=== PATIENT | male | born 1980 | race Two or more races ===

== ENCOUNTER 2020-11-10 14:17 | Outpatient (REF) | payer OTHER, SELFPAY | END 2020-11-10 14:18 | disposition home or self-care (01) | LOC: HO.LAB 14:17 | PROVIDERS: Visit Provider Internal Medicine | DX: Z20.822 Contact with and (suspected) exposure to COVID-19 (principal) | CPT/HCPCS: 36415; C9803; U0003 ==

== ENCOUNTER 2020-12-17 17:08 | Emergency (ER) | payer OTHER, SELFPAY ==
[2020-12-17 17:15] VITALS: PULSE 107; RESP 18; TEMP 36.3; O2SAT 100; BMI 31.5
--- NOTE | 2020-12-17 17:24 | ED_ITS ---
HPI - URI/Sore Throat General Chief Complaint: Upper Respiratory Symptoms Stated Complaint: flu like Time Seen by Provider: 12/17/20 18:50 Source: patient Mode of arrival: ambulatory Limitations: no limitations History of Present Illness HPI Narrative: 40-year-old male with no significant past medical history presents with 1 day of fevers, sore throat, body aches and malaise. Has been taking Tylenol and Motrin without any relief. 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) Associated symptoms: fever, chills, myalgias, headache, nasal congestion and sore throat Treatments prior to arrival: acetaminophen and ibuprofen Related Data Allergies Allergy/AdvReac Type Severity Reaction Status Date / Time No Known Allergies Allergy Unverified 07/13/20 17:14 Review of Systems Review of Systems: Constitutional: positive Fever, positive Chills, positive fatigue, positive Malaise ENT/Mouth: positive sore throat, positive runny nose Eyes: No Discharge Cardiovascular: No Chest Pain, No SOB Respiratory: No Cough, No Sputum, No Wheezing, No Smoke Exposure, No Dyspnea Gastrointestinal: No Nausea, No Vomiting, No Diarrhea Genitourinary: no irregular bleeding, No Dysuria, No Urinary Frequency, No Hematuria, No Urinary Incontinence, No Urgency, No Flank Pain, Musculoskeletal: positive Myalgia Skin: No rash Neuro: No Headache Yes all other systems are reviewed and are negative [facility] Past Medical History Attestation statement: The following information was validated with the patient. Source: old records reviewed Social History Social History Advance Directives: No Advance Directives Information Provided: No Physical Exam Vital Signs: Vital Signs: Last Vital Signs Temp 97.4 F 12/17/20 17:15 Pulse 107 H 12/17/20 17:15 Resp 18 12/17/20 17:15 Pulse Ox 100 12/17/20 17:15 Body Mass Index 31.5 Appearance: Alert. Oriented X3. No acute distress. Eyes: Pupils equal, round and reactive to light. EOMI, sclera nonicteric ENT: Pharynx normal. No erythema or tonsillar exudates noted, moist mucous membranes, bilateral tympanic membranes intact Neck: Normal inspection. Neck supple. No cervical lymphadenopathy noted CVS: Normal heart rate and rhythm. Pulses normal. Respiratory: No respiratory distress. Lung sounds clear to auscultation all lobes Abdomen: Soft and nontender. Skin: Skin warm and dry. Normal skin color. Normal skin turgor. Extremities: No lower extremity edema. Neuro: No motor deficit. No sensory deficit. Course Course Course Narrative: 40-year-old male presents with upper respiratory symptoms consistent with COVID-19. Plan of care is to test and discharge to home. MDM - URI/Sore Throat Differential Diagnosis Differential diagnosis: Likely upper respiratory infection, viral infection and influenza Medical Records Attestation: I reviewed the patient's medical records. Lab Data Attestation: I reviewed the patient's lab results. Labs: Lab Results 12/17/20 Range/Units 17:36 Coronavirus (PCR) NEGATIVE (Negative) Influenza Type A (PCR) NEGATIVE (Negative) Influenza Type B (PCR) NEGATIVE (Negative) RSV RNA Qual (PCR) NEGATIVE (Negative) Discharge Plan Discharge Clinical Impression: Viral infection, COVID-19 Upper respiratory infection Qualifiers: URI type: unspecified URI Qualified Code(s): J06.9 - Acute upper respiratory infection, unspecified Patient Disposition: Home, Self-Care Instructions: Upper Respiratory Infection (ED), Viral Syndrome (ED) Additional Instructions: You were evaluated for upper respiratory symptoms. Your COVID-19 test was negative. Please use Tylenol Motrin as needed for pain management. You may consider using iyfo-uhy-woefldj cough suppressants. Please follow the directions on package. Drink plenty of fluids. Thank you for choosing this emergency department for evaluation. Please f ollow-up with primary care physician as needed. Return to the emergency department for any new, concerning, or worsening symptoms. Interventions: ED Discharge Assessment Last Done: 12/17/20 18:55 Discharge Date/Time: 12/17/20 18:56
[2020-12-17 18:21] LABS: Influenza A PCR NEGATIVE (Negative); Influenza B PCR NEGATIVE (Negative); Resp Syncy Virus RNA Qual PCR NEGATIVE (Negative); SARS COV2 PCR INHOUSE NEGATIVE (Negative)
== END 2020-12-17 18:56 | disposition home or self-care (01) ==
PROVIDERS: Nurse Practitioner Family; Emergency Provider Internal Medicine; PCP Internal Medicine
DX: U07.1 COVID-19 (principal); R50.9 Fever, unspecified; J02.9 Acute pharyngitis, unspecified; M79.10 Myalgia, unspecified site
CPT/HCPCS: 0241U; 36415; 99283

== ENCOUNTER 2023-01-28 15:30 | Emergency (ER) | payer OTHER, SELFPAY ==
--- NOTE | ~2023-01-28 | XR_ITS ---
EXAMINATION: 1. Left foot. 2. Left tibia fibula. 3. Left knee. CLINICAL INFORMATION: Left foot pain. COMPARISON: None. TECHNIQUE: 1. Left foot. 3 views 2. Left tibia-fibula. 2 views 3. Left knee. 2 views FINDINGS: 1. Left foot. No fracture. No dislocation. Bone and joint are normal. 2. Left tibia-fibula. No fracture. Tibia and fibula are normal. No soft tissue abnormality. 3. Left knee. No fracture. No dislocation. No joint effusion. XR/XR tibia fibula LT 2V IMPRESSION: 1. Left foot. Normal. 2. Left tibia-fibula. Normal. 3. Left knee. Normal.
--- NOTE | ~2023-01-28 | XR_ITS ---
EXAMINATION: 1. Left foot. 2. Left tibia fibula. 3. Left knee. CLINICAL INFORMATION: Left foot pain. COMPARISON: None. TECHNIQUE: 1. Left foot. 3 views 2. Left tibia-fibula. 2 views 3. Left knee. 2 views FINDINGS: 1. Left foot. No fracture. No dislocation. Bone and joint are normal. 2. Left tibia-fibula. No fracture. Tibia and fibula are normal. No soft tissue abnormality. 3. Left knee. No fracture. No dislocation. No joint effusion. XR/XR foot LT 2V IMPRESSION: 1. Left foot. Normal. 2. Left tibia-fibula. Normal. 3. Left knee. Normal.
--- NOTE | ~2023-01-28 | XR_ITS ---
EXAMINATION: 1. Left foot. 2. Left tibia fibula. 3. Left knee. CLINICAL INFORMATION: Left foot pain. COMPARISON: None. TECHNIQUE: 1. Left foot. 3 views 2. Left tibia-fibula. 2 views 3. Left knee. 2 views FINDINGS: 1. Left foot. No fracture. No dislocation. Bone and joint are normal. 2. Left tibia-fibula. No fracture. Tibia and fibula are normal. No soft tissue abnormality. 3. Left knee. No fracture. No dislocation. No joint effusion. XR/XR knee LT 2V IMPRESSION: 1. Left foot. Normal. 2. Left tibia-fibula. Normal. 3. Left knee. Normal.
[2023-01-28 16:56] VITALS: BP 152/111; PULSE 122; RESP 18; TEMP 37.1; O2SAT 99; BMI 31.5
--- NOTE | 2023-01-28 16:58 | ED.LOWEXIN ---
HPI - Extremity Injury (Lower) General Chief Complaint: Extremity Injury, Lower <JANNIE Mishra - Last Filed: 01/28/23 17:09> Stated Complaint: Fall down stairs/L leg inj <JANNIE Mishra - Last Filed: 01/28/23 17:09> Time Seen by Provider: 01/28/23 18:39 <JANNIE Mishra - Last Filed: 01/28/23 17:09> Source: patient and RN notes reviewed <Juan R Royal - Last Filed: 01/28/23 19:21> Mode of arrival: ambulatory <Juan R Royal - Last Filed: 01/28/23 19:21> Limitations: no limitations <Juan R Royal - Last Filed: 01/28/23 19:21> History of Present Illness HPI Narrative: 42-year-old male presents for evaluation of left ankle pain. Patient reports that he slipped down 7 stairs at home a few hours prior to arrival. The patient reports that he grabbed the hand rail, so he slid down but did not fall or hit his head He reports that he only ate his left ankle He complains of 7/10 pain that is worse with walking Denies any fevers, chills <Juan R Royal - Last Filed: 01/28/23 19:21> Related Data Allergies/Adverse Reactions: Allergies Allergy/AdvReac Type Severity Reaction Status Date / Time No Known Allergies Allergy Unverified 07/13/20 17:14 <JANNIE Mishra - Last Filed: 01/28/23 17:09> Review of Systems Constitutional: Constitutional: Reports as per HPI, Denies chills and Denies fever(s) <Juan R Royal - Last Filed: 01/28/23 19:21> Cardiovascular: Cardiovascular: Denies chest pain <Juan R Royal - Last Filed: 01/28/23 19:21> Musculoskeletal: Musculoskeletal: Reports arthralgias, Reports joint swelling and Reports limited range of motion <Juan R Royal - Last Filed: 01/28/23 19:21> Neurologic: Denies focal weakness <Juan R Royal - Last Filed: 01/28/23 19:21> [facility] Social History Social History: Social History Advance Directives: No Advance Directives Information Provided: No <JANNIE Mishra - Last Filed: 01/28/23 17:09> Physical Exam Vital Signs: Vital Signs: Last Vital Signs Temp 98.8 F 01/28/23 16:56 Pulse 122 H 01/28/23 16:56 Resp 18 01/28/23 16:56 BP 152/111 H 01/28/23 16:56 Pulse Ox 99 01/28/23 16:56 O2 Del Method Room Air 01/28/23 16:56 BMI result Body Mass Index 31.5 <JANNIE Mishra - Last Filed: 01/28/23 17:09> Vital Signs: Last Vital Signs Temp 98.8 F 01/28/23 16:56 Pulse 122 H 01/28/23 16:56 Resp 18 01/28/23 16:56 BP 152/111 H 01/28/23 16:56 Pulse Ox 99 01/28/23 16:56 O2 Del Method Room Air 01/28/23 16:56 BMI result Body Mass Index 31.5 <Juan R Royal - Last Filed: 01/28/23 19:21> Const: General: healthy appearing, comfortable, no acute distress, alert and awake <Juan R Royal - Last Filed: 01/28/23 19:21> Nutritional Appearance: well nourished <Juan R Royal - Last Filed: 01/28/23 19:21> Orientation/consciousness: patient oriented x3 <Juan R Royal - Last Filed: 01/28/23 19:21> Neck: Neck: Yes full ROM <Juan R Royal - Last Filed: 01/28/23 19:21> Resp: Effort & Inspection: normal respiratory effort <Juan R Royal - Last Filed: 01/28/23 19:21> Skin: General skin exam: no rashes or lesions noted and elasticity normal <Juan R Royal - Last Filed: 01/28/23 19:21> Neuro: General: patient oriented x3 <Juan R Royal - Last Filed: 01/28/23 19:21> Cranial nerves: Yes Bilaterally intact EOM present <Juan R Royal - Last Filed: 01/28/23 19:21> Cognition (Neuro): normal cognition <Juan R Royal - Last Filed: 01/28/23 19:21> Extrem: Other: Patient has left lateral ankle edema. He is nontender with palpation of the medial or lateral malleolus. The patient is tender to palpation over the left patella fibular ligament. No hip or knee tenderness. Full range of motion to the left hip and knee. <Juan R Royal - Last Filed: 01/28/23 19:21> Course Course Course Narrative: This is an RME: Additional HPI, ROS, PE not included below will be deferred to primary provider. 42-year-old male presents with left foot, ankle, lower extremity pain status post slipping down the stairs he was going down the stairs and slipped, rolled his ankle outwards, has been having pain and swelling to the lower extremity ever since then. He tells me any fell he held onto the handrail, did not his head or lose consciousness, not on thinners. Ambulated w/ limp into triage. Denies numbness and tingling PE w/ swelling to lateral L no ill w/ painful ROM of ankle. NV intact Plan- imaging <JANNIE Mishra - Last Filed: 01/28/23 17:09> Medical Decision Making Medical Decision Making MDM Narrative: Patient clinically has a left ankle sprain of the talofibular ligament. Will treat with crutches and Michael wrap. <Juan R Royal - Last Filed: 01/28/23 19:21> Differential Diagnosis Ankle fracture Ankle sprain Contusion Foot fracture <Juan R Royal - Last Filed: 01/28/23 19:21> Radiology Impression Discussion of test interpretation with radiology: I have reviewed the radiologist's reading. (Patient had x-rays of the left knee, left foot and left tibia and fibula without acute findings) <Juan R Royal - Last Filed: 01/28/23 19:21> Discharge Plan Discharge Clinical Impression: Left ankle sprain <JANNIE Mishra - Last Filed: 01/28/23 17:09> Patient Disposition: Home, Self-Care <JANNIE Mishra - Last Filed: 01/28/23 17:09> Instructions: Ankle Sprain (ED) <JANNIE Mishra - Last Filed: 01/28/23 17:09> Additional Instructions: Your x-rays did not show any fractures. Use ibuprofen as needed for pain and swelling. Ice the area every 4 hours for 10 minutes for the next 2 days Elevate the leg above your heart while resting <JANNIE Mishra - Last Filed: 01/28/23 17:09> Stand Alone Forms: Work/School Release <JANNIE Mishra - Last Filed: 01/28/23 17:09> Interventions: ED Discharge Assessment Last Done: 01/28/23 19:21 <JANNIE Mishra - Last Filed: 01/28/23 17:09>
== END 2023-01-28 19:21 | disposition home or self-care (01) ==
PROVIDERS: Emergency Provider Emergency Medicine; PCP Internal Medicine
DX: S93.492A Sprain of other ligament of left ankle, initial encounter (principal); W10.8XXA Fall (on) (from) other stairs and steps, initial encounter; Y93.89 Activity, other specified; Y92.018 Other place in single-family (private) house as the place of occurrence of the external cause; Y99.9 Unspecified external cause status
CPT/HCPCS: 73560; 73590; 73620; 99282; 99283

== ENCOUNTER 2023-09-04 11:36 | Outpatient (AMB) | payer OTHER, SELFPAY ==
[2023-09-04 11:40] VITALS: BP 140/92; PULSE 110; O2SAT 98; BMI 32.7
--- NOTE | 2023-09-04 11:40 | MHC.PC.OV ---
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 [employer] Lead Required: No Accompanied by: Self / Same As Patient Allergies No Known Allergies Allergy (Verified 09/04/23 11:56) Medication List - Last Reconciled 09/04/23 by NETTIE Kelly No Known Home Meds Tobacco use date assessed: 09/04/23 Dental Screening Dental Screen Date: 09/04/23 Did you have a dental visit in the last 12 months?: No Did you have a dental problem in the last 6 months where you did not have access to dental care?: No Was dental information given to patient?: No HPI HPI Comments History of Present Illness Details 43-year-old male new patient presents today to establish care. PMH significatnfor lumbar back pain. Patient reports elevated blood pressures at home. States his is lb and she checks his blood pressure frequently and it is always above 140/90. Patient states also has left-sided chest pressure with his blood pressures are elevated that typically last 20-30 minutes when he rests and resolves. Patient states was recently at [facility] Emergency room for evaluation of this and workup was unremarkable. Will request records. Denies CP at this time,palpitations, sob and syncope. 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 Eye exam: November 2022 Fasting labs ordered. [facility] Medical History (Updated 09/04/23 @ 12:03 by NETTIE Kelly) Lumbar back pain Family History (Updated 09/04/23 @ 11:59 by NETTIE Kelly) Mother Hypertension Social History (Updated 09/04/23 @ 11:59 by NETTIE Kelly) Housing: House Alcohol intake: never Patient Tobacco Use Status: Never used Tobacco e-Cigarette/Vaping Use: Never Used Use of substances other than those prescribed or required for medical reasons: No service: No Current occupational status: employed Cognitive needs: No Hearing needs: No Vision needs: No Questionnaire PHQ-9 Over the last 2 weeks, how often have you been bothered by any of the following problems? 1. Little interest or pleasure in doing things: not at all 2. Feeling down, depressed, or hopeless: not at all 3. Trouble falling or staying asleep, or sleeping too much: not at all 4. Feeling tired or having little energy: not at all 5. Poor appetite or overeating: not at all 6. Feeling bad about yourself - or that you are a failure or have let yourself or your family down: not at all 7. Trouble concentrating on things, such as reading the newspaper or watching television: not at all 8. Moving or speaking so slowly that other people could have noticed. Or the opposite - being so fidgety or restless that you have been moving around a lot more than usual: not at all 9. Thoughts that you would be better off or of hurting yourself in some way: not at all Total score: 0 Depression Screening Interpretation: Negative Depression Screening Done: Yes 91140 - PHQ-9 Billing: Yes Source: Developed by Drs. Juan Mott, Tea Altman, Liu Gonzalez and colleagues, with an educational lito from [employer]. Thrive Questionnaire Date Thrive assessed: 09/04/23 I am a: Patient What is your living situation today?: I have a steady place to live Within the past 12 months, did the food you bought not last and you didn't have the money to get more?: Never true Within the past 12 months, did you worry whether your food would run out before you got money to buy more?: Never true Do you have trouble paying for medicines?: No Do you have trouble getting transportation to medical appointments?: No Do you have trouble paying your heating and electricity bill?: No Do you have trouble taking care of your child, family member or friend?: No Do you have trouble with day-to-day activities such as bathing, preparing meals, shopping, managing finances, etc.?: No Are you currently unemployed and looking for a job?: No Are you interested in more education?: No Please select the resources that you would like help with: None Currently or been in a relationship where the following occur: no concerns reported AUDIT C Alcohol Use Questionnaire (AUDIT-C) 1. How often do you have a drink containing alcohol?: Never 3. How often do you have six or more drinks on one occasion?: Never Total Score: 0 ANAYA-7 AMB Questionnaire ANAYA-7 Date ANAYA - 7 assessed: 09/04/23 Feeling nervous, anxious, or on edge: 0 = Not at all Not being able to stop or control worryin = Not at all Worrying too much about different things: 0 = Not at all Trouble relaxin = Not at all Being so restless that it is hard to sit still: 0 = Not at all Becoming easily annoyed or irritable: 0 = Not at all Feeling afraid as if something awful might happen: 0 = Not at all Total ANAYA-7 score (0-4 normal; 5-9 mild; 10-14 moderate; 15-21 severe): 0 Source: Developed by Drs. Juan Mott, Tea Altman, Liu Gonzalez and colleagues, with an educational lito from [employer]. ANAYA-7 Assessment Billing ANAYA-7 Assessment Tool: ANAYA-7 Assessment 98147 Review of Systems Const Denies chills, Denies fatigue, Denies fever(s) and Denies poor appetite Eyes Denies no additional complaints ENT Reports Normal hearing present Card Denies chest pain, Denies syncope, Denies rapid heart rate and Denies dyspnea Resp Denies cough and Denies dyspnea GI Denies change in stool character, Denies constipation, Denies diarrhea, Denies nausea and Denies vomiting Denies dysuria, Denies urinary frequency and Denies urinary urgency Neuro Reports Normal hearing present, Denies confusion and Denies syncope Psych Denies confusion Endo Denies fatigue Physical exam (Primary Care) Vital Signs: Last Vital Signs Pulse 110 H 09/04/23 11:40 BP 140/92 H 09/04/23 11:40 Pulse Ox 98 09/04/23 11:40 Oxygen Delivery Method Room Air 09/04/23 11:40 BMI result Body Mass Index 32.7 Tobacco/Smoking Status: Tobacco use Status Tobacco use date assessed 09/04/23 09/04/23 11:43 Patient Tobacco Use Status Never used Tobacco 09/04/23 11:59 e-Cigarette/Vaping Use Never Used 09/04/23 11:59 PHQ-9: PHQ-9 Score PHQ-9: Total score 0 09/04/23 12:12 Depression Screening Interpretation: Negative Thrive Assessment: Date of Thrive Assessment Date Thrive assessed 09/04/23 09/04/23 11:43 Currently or been in a relationship where the following occur: no concerns reported Const General: No confusion Orientation/consciousness: No confusion HENMT Head: Yes normocephalic and Yes atraumatic Ears: external ears normal and TM's normal bilaterally General nose exam: Normal external nose present and Normal nasal mucous membranes and turbinates present Face and sinus: Yes normal facial exam and Yes sinuses nontender Mouth: moist mucous membranes Throat: Yes tonsils normal Eyes Conjunctivae: conjunctivae normal Sclerae: sclerae normal Pupils: Equal, round and reactive pupils present and Pupils normal by confrontation EOM: EOMs intact bilaterally Direct Ophthalmoscopy: normal light reflex Neck Neck: Yes no lymphadenopathy and Yes supple Thyroid: Thyroid normal Chest Chest palpation & inspection: normal inspection of the chest Resp Effort & Inspection: normal respiratory effort Auscultation: clear to auscultation bilaterally, no crackles, no rhonchi and no wheezes Cardio Rate: regular rate Rhythm: regular rhythm Peripheral pulses: radial pulses present and dorsalis pedis present GI Inspection: Yes normal to inspection Palpation (GI): Soft to palpation, nontender and No hepatosplenomegaly present Auscultation: normoactive bowel sounds Skin General skin exam: no rashes or lesions noted Neuro General: No confusion Cranial nerves: Yes Equal, round and reactive pupils present and Yes Normal hearing present Cognition (Neuro): normal cognition Gait exam (Neuro): Normal gait present Motor exam (neuro): 5/5 motor strength present throughout Deep tendon reflexes (DTR's): Right brachioradialis reflex intensity grade: 2+, Left brachioradialis reflex intensity grade: 2+, Right patellar reflex intensity grade: 2+ and Left patellar reflex intensity grade: 2+ Extrem General: No edema Office Procedures Flu Questionnaire Does the patient have a severe egg allergy?: No Does the patient have severe life threatening allergies?: No Does the patient have a fever or illness today?: No Has the patient ever had Guillain-[place] Syndrome?: No Has the patient ever had any past reaction to a flu shot?: No Immunizations flu vacc [id number] 6mos up(PF) 60 mcg(15 mcgx4)/0.5 mL IM syringe Performing Provider: Dianne O'Chintan, [employer] WORKER [place] [facility] [place] [facility] Administered by: GWENDOLYN Avila on 09/04/23 12:12 Dose Route Admin Location Dispensed Lot Number Expiration Date NDC Entry Level Financial Analyst 0.5 mL IM Left Deltoid 0.5 mL [id number] 04/25/24 [id number] [place] VIS Given Date VIS Provided VIS Publication Date 09/04/23 Single Vaccine 21 Eligibility Eligibility Date Funding Source Not [facility] Eligible 09/04/23 Private Assessment and Plan Assessment & Plan (1) Hypertension: Code(s): I10 - Essential (primary) hypertension Plan: Patient is experiencing elevated blood pressure as as elevated rate will start patient on metoprolol 25 mg daily. Patient advised to follow low-salt diet exercise. Patient advised to continue to monitor blood pressure home after sitting down for 3-5 minutes and keep a log. Please report any elevated blood pressures to PCP. blood pressure goal < 140/90. (2) Chest pain: Code(s): R07.9 - Chest pain, unspecified Plan: EKG ordered. [place] [facility] [place] Signs and symptoms reviewed with patient when to seek emergency medical attention. (3) Physical exam, annual: Code(s): Z00.00 - Encounter for general adult medical examination without abnormal findings Plan: Follow up in 1 year Plan Follow up in 3 months Orders: Orders Comprehensive [place]. Panel Fast Today I10 - Essential (primary) hypertension Complete Blood Count Auto Diff Today Z13.0 - Encounter for screening for diseases of the blood and blood-forming organs and certain disorders involving the immune mechanism TSH reflex Free T4 Today Z13.29 - Encounter for screening for other suspected endocrine disorder Influenza [id number] Immunization Today Z23 - Encounter for immunization Lipid Panel Today Z13.220 - Encounter for screening for lipoid disorders ECG 12 lead EKG Today R07.9 - Chest pain, unspecified Medications: New metoprolol tartrate 25 mg PO DAILY 30 tabs 0RF I10 - Essential (primary) hypertension Coding Level of Care Code New Pt Prev Care 40-64y([id number]) Diagnoses Hypertension I10 Chest pain R07.9 Physical exam, annual Z00.00 Additional Codes ANAYA-7 Assessment Billing - ANAYA-7 Assessment Tool: ANAYA-7 Assessment [id number] ([id number])
== END 2023-09-04 12:18 | disposition home or self-care (01) ==
PROVIDERS: PCP Internal Medicine; Visit Provider Nurse Practitioner Family
DX: Z00.00 Encounter for general adult medical examination without abnormal findings (principal); I10 Essential (primary) hypertension; R07.9 Chest pain, unspecified; Z23 Encounter for immunization
CPT/HCPCS: 90471; 90686; 99386

== ENCOUNTER 2023-09-19 09:04 | Outpatient (REF) | payer OTHER, SELFPAY ==
[2023-09-19 09:16] LABS: MANUAL DIFF FLAG NO
[2023-09-19 09:26] LABS: Basophils Percent Auto 0.3 % (0-2); Eosinophils Absolute Auto 0.2 X10*3/uL (0.0-0.4); Eosinophils Percent Auto 1.7 % (0-4); Hematocrit 45.1 % (42.0-52.0); Hemoglobin 15.5 g/dl (14.0-18.0); Imm Gran Abs Auto 0.05 X10*3/uL (0.00-0.03); Imm Gran Pct Auto 0.4 % (0.0-0.4); Lymphocytes Absolute Auto 3.8 X10*3/uL (1.2-4.9); Lymphocytes Percent Auto 33.2 % (20-40); Mean Corpuscular HGB Conc 34.4 g/dl (31.0-36.0); Mean Corpuscular Volume 87.2 fL (80.0-98.0); Mean Platelet Volume 8.7 fL (9.4-12.4); Monocytes Absolute Auto 0.9 X10*3/uL (0.1-1.2); Monocytes Percent Auto 7.4 % (2-11); Neutrophils Absolute Auto 6.6 x10*3/uL (2.0-8.3); Platelet Count 429 X10*3/uL (160-400); Red Blood Count 5.17 X10*6/uL (4.60-5.80); Red Cell Distribution Width 12.8 % (11.0-16.0); White Blood Count 11.5 X10*3/uL (4.8-10.8)
[2023-09-19 10:03] LABS: Alanine Aminotransferase 33 U/L (0-40); Albumin Level 4.6 g/dL (3.5-5.0); Alkaline Phosphatase 57 U/L (39-117); Anion Gap 14 (12-20); Aspartate Amino Transferase 22 U/L (5-37); Bilirubin Total 0.5 mg/dL (0.0-1.0); Blood Urea Nitrogen 16 mg/dL (9-16); Calcium 9.4 mg/dL (8.4-10.2); Carbon Dioxide 22 mmol/L (22-29); Chloride 107 mmol/L (96-108); Cholesterol 176 mg/dL (<200); Estimated Glomerular Filt Rate > 60; Glucose Fasting 110 mg/dL (60-99); HDL Cholesterol 34 mg/dL (>40); LDL Cholesterol Calculated 105 mg/dL (<100); Potassium 4.1 mmol/L (3.3-5.1); Sodium 139 mmol/L (135-145); Total Protein 8.3 g/dL (6.5-8.0); Triglycerides 188 mg/dL (<150)
== END 2023-09-19 09:05 | disposition home or self-care (01) ==
LOC: HO.LAB 09:04
PROVIDERS: PCP Internal Medicine; Visit Provider Nurse Practitioner Family
DX: Z13.0 Encounter for screening for diseases of the blood and blood-forming organs and certain disorders involving the immune mechanism (principal); Z13.29 Encounter for screening for other suspected endocrine disorder; Z13.220 Encounter for screening for lipoid disorders; I10 Essential (primary) hypertension
CPT/HCPCS: 36415; 80053; 80061; 84443; 85025

== ENCOUNTER → 2023-10-08 06:37 | Outpatient (REF) | payer OTHER, SELFPAY ==
[2023-10-08 06:51] LABS: MANUAL DIFF FLAG NO
--- NOTE | 2023-10-08 06:51 | ECG_ITS ---
Test Reason : chest pain Blood Pressure : / mmHG Vent. Rate : 076 BPM Atrial Rate : 076 BPM P-R Int : 164 ms QRS Dur : 096 ms QT Int : 376 ms P-R-T Axes : 038 -01 046 degrees QTc Int : 423 ms Normal sinus rhythm with sinus arrhythmia Normal ECG When compared with ECG of 20-JUL-2014 15:50, No significant change was found Referred By: Dianne Clayton Electronically Signed By:Rio Granados
[2023-10-08 07:16] LABS: Basophils Percent Auto 0.4 % (0-2); Eosinophils Absolute Auto 0.2 X10*3/uL (0.0-0.4); Eosinophils Percent Auto 2.1 % (0-4); Hematocrit 45.7 % (42.0-52.0); Hemoglobin 15.6 g/dl (14.0-18.0); Imm Gran Abs Auto 0.04 X10*3/uL (0.00-0.03); Imm Gran Pct Auto 0.4 % (0.0-0.4); Lymphocytes Absolute Auto 3.9 X10*3/uL (1.2-4.9); Lymphocytes Percent Auto 37.2 % (20-40); Mean Corpuscular HGB Conc 34.1 g/dl (31.0-36.0); Mean Corpuscular Hemoglobin 30.4 pg (27.0-33.0); Mean Corpuscular Volume 89.1 fL (80.0-98.0); Mean Platelet Volume 9.2 fL (9.4-12.4); Monocytes Absolute Auto 0.8 X10*3/uL (0.1-1.2); Monocytes Percent Auto 7.2 % (2-11); Neutrophils Absolute Auto 5.5 x10*3/uL (2.0-8.3); Neutrophils Percent Auto 52.7 % (45-73); Platelet Count 362 X10*3/uL (160-400); Red Blood Count 5.13 X10*6/uL (4.60-5.80); Red Cell Distribution Width 12.7 % (11.0-16.0); White Blood Count 10.5 X10*3/uL (4.8-10.8)
[2023-10-08 07:28] LABS: Estimated Average Glucose 117 mg/dL; Hemoglobin A1c % 5.7 % (<6.0)
[2023-10-08 07:29] LABS: Alanine Aminotransferase 33 U/L (0-40); Albumin Level 4.7 g/dL (3.5-5.0); Alkaline Phosphatase 57 U/L (39-117); Anion Gap 11 (12-20); Aspartate Amino Transferase 25 U/L (5-37); Bilirubin Total 0.7 mg/dL (0.0-1.0); Blood Urea Nitrogen 15 mg/dL (9-16); Calcium 9.7 mg/dL (8.4-10.2); Carbon Dioxide 27 mmol/L (22-29); Chloride 103 mmol/L (96-108); Cholesterol 192 mg/dL (<200); Estimated Glomerular Filt Rate > 60; Glucose Fasting 111 mg/dL (60-99); HDL Cholesterol 34 mg/dL (>40); LDL Cholesterol Calculated 122 mg/dL (<100); Potassium 4.1 mmol/L (3.3-5.1); Sodium 137 mmol/L (135-145); Total Protein 8.2 g/dL (6.5-8.0); Triglycerides 181 mg/dL (<150)
== END ==
LOC: HO.CARD 06:37
PROVIDERS: PCP Internal Medicine; Visit Provider Nurse Practitioner Family
DX: R07.9 Chest pain, unspecified (principal); R79.89 Other specified abnormal findings of blood chemistry; R73.01 Impaired fasting glucose; E78.1 Pure hyperglyceridemia
CPT/HCPCS: 36415; 80053; 80061; 83036; 85025; 93005

== ENCOUNTER → 2023-10-08 06:51 | Outpatient (BNV) | payer OTHER, SELFPAY | PROVIDERS: PCP Internal Medicine; Visit Provider Internal Medicine Cardiovascular Disease | DX: R07.9 Chest pain, unspecified (principal) | CPT/HCPCS: 93010 ==

== ENCOUNTER 2024-06-14 13:39 | Outpatient (AMB) | payer OTHER, SELFPAY ==
[2024-06-14 13:44] VITALS: BP 148/104; PULSE 112; O2SAT 97; BMI 33.0
--- NOTE | 2024-06-14 13:44 | MHC.PC.OV ---
Vital Signs 06/14/24 13:44 Height 5 ft 10 in Weight 230 lb BMI 33.0 BP 148/104 H Blood Pressure Location Lt brachial Position Sitting Pulse 112 H Pulse Source Pulse Oximeter Pulse Oximetry (%) 97 Oxygen Delivery Method Room Air Intake Visit Reasons: annual exam/ transfer Dianne patient Intake Note: Patient is here today for a physical. 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 During the daytime he gets 4 hours of sleep, as he takes care of 4 children. He is single parent and 2 of his children requires special needs. Does not exercise or follow any particular diet. Has not been recording his blood pressure at home. Compliant with medication. 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 1. Little interest or pleasure in doing things: not at all 2. Feeling down, depressed, or hopeless: not at all 3. Trouble falling or staying asleep, or sleeping too much: not at all 4. Feeling tired or having little energy: not at all 5. Poor appetite or overeating: not at all 6. Feeling bad about yourself - or that you are a failure or have let yourself or your family down: not at all 7. Trouble concentrating on things, such as reading the newspaper or watching television: not at all 8. Moving or speaking so slowly that other people could have noticed. Or the opposite - being so fidgety or restless that you have been moving around a lot more than usual: not at all 9. Thoughts that you would be better off or of hurting yourself in some way: not at all Total score: 0 Depression Screening Interpretation: Negative Depression Screening Done: Yes 16804 - PHQ-9 Billing: Yes Source: Developed by Drs. Juan Mott, Tea Altman, Liu Gonzalez and colleagues, with an educational lito from [employer]. Thrive Questionnaire Date Thrive assessed: 06/14/24 I am a: Patient What is your living situation today?: I have a steady place to live Within the past 12 months, did the food you bought not last and you didn't have the money to get more?: Never true Within the past 12 months, did you worry whether your food would run out before you got money to buy more?: Never true Do you have trouble paying for medicines?: No Do you have trouble getting transportation to medical appointments?: No Do you have trouble paying your heating and electricity bill?: No Do you have trouble taking care of your child, family member or friend?: No Do you have trouble with day-to-day activities such as bathing, preparing meals, shopping, managing finances, etc.?: No Are you currently unemployed and looking for a job?: No Are you interested in more education?: No Please select the resources that you would like help with: None Currently or been in a relationship where the following occur: No concerns reported THRIVE Score: 0 AUDIT C Alcohol Use Questionnaire (AUDIT-C) 1. How often do you have a drink containing alcohol?: Never 3. How often do you have six or more drinks on one occasion?: Never Total Score: 0 ANAYA-7 AMB Questionnaire ANAYA-7 Date ANAYA - 7 assessed: 06/14/24 Feeling nervous, anxious, or on edge: 0 = Not at all Not being able to stop or control worryin = Not at all Worrying too much about different things: 0 = Not at all Trouble relaxin = Not at all Being so restless that it is hard to sit still: 0 = Not at all Becoming easily annoyed or irritable: 0 = Not at all Feeling afraid as if something awful might happen: 0 = Not at all Total ANAYA-7 score (0-4 normal; 5-9 mild; 10-14 moderate; 15-21 severe): 0 Source: Developed by Drs. Juan Mott, Tea Altman, Liu Gonzalez and colleagues, with an educational lito from [employer]. ANAYA-7 Assessment Billing ANAYA-7 Assessment Tool: ANAYA-7 Assessment 60934 Physical exam (Primary Care) Vital Signs: Last Vital Signs Pulse 112 H 06/14/24 13:44 BP 148/104 H 06/14/24 13:44 Pulse Ox 97 06/14/24 13:44 Oxygen Delivery Method Room Air 06/14/24 13:44 Care Plan Goal for BP management: Blood pressure is elevated. Medication dosage has been increased. BMI result Body Mass Index 33.0 BMI Assessment/Plan discussion: High (1 lb per week weight loss suggested.) BMI High, discussed plan: lifestyle, weight reduction and dietary Tobacco/Smoking Status: Tobacco use Status Tobacco use date assessed 06/14/24 06/14/24 14:06 Patient Tobacco Use Status Never used Tobacco 06/14/24 13:45 e-Cigarette/Vaping Use Never Used 06/14/24 13:45 PHQ-9: PHQ-9 Score PHQ-9: Total score 0 06/14/24 14:06 Depression Screening Interpretation: Negative Thrive Assessment: Date of Thrive Assessment Date Thrive assessed 06/14/24 06/14/24 14:06 Currently or been in a relationship where the following occur: No concerns reported Const General: cooperative and healthy appearing Nutritional Appearance: well nourished Orientation/consciousness: patient oriented x3 Limitations: no limitations HENMT Head: Yes normal to inspection Eyes General: appearance normal, both eyes and all related structures Neck Neck: Yes normal visual inspection Chest Chest palpation & inspection: normal palpation of entire chest wall Resp Effort & Inspection: normal respiratory effort Neuro General: patient oriented x3 Telehealth Telehealth Telehealth method: voice only Assessment and Plan Assessment & Plan (1) Hypertension: Code(s): I10 - Essential (primary) hypertension Plan: Metoprolol dosage has been increased to 50 mg once a day. Encouraged patient to check blood pressures frequently at home. Importance of diet and exercise explained. (2) Hypertriglyceridemia: Code(s): E78.1 - Pure hyperglyceridemia Plan: Fasting blood work has been requested. Will call with the results. Orders: Orders Basic Metabolic Panel Today E78.1 - Pure hyperglyceridemia, I10 - Essential (primary) hypertension Lipid Panel Today E78.1 - Pure hyperglyceridemia, I10 - Essential (primary) hypertension Liver Panel Today E78.1 - Pure hyperglyceridemia, I10 - Essential (primary) hypertension Complete Blood Count no Diff Today E78.1 - Pure hyperglyceridemia, I10 - Essential (primary) hypertension UA and rflx microscopic Today E78.1 - Pure hyperglyceridemia, I10 - Essential (primary) hypertension Thyroid Stimulating Hormone Today E78.1 - Pure hyperglyceridemia, I10 - Essential (primary) hypertension Medications: New metoprolol succinate ER 50 mg PO DAILY 90 tabs 1RF Discontinued metoprolol tartrate Discontinued Reason: Doctor's Order 25 mg PO DAILY 30 tabs 0RF I10 - Essential (primary) hypertension Coding Level of Care Code Est Pt Level 4 (90273) Complex EM visit Add On G2211 Diagnoses Hypertension I10 Hypertriglyceridemia E78.1 Additional Codes ANAYA-7 Assessment Billing - ANAYA-7 Assessment Tool: ANAYA-7 Assessment 58693 ([id number])
== END 2024-06-14 14:51 | disposition home or self-care (01) ==
PROVIDERS: PCP Internal Medicine; Visit Provider Internal Medicine
DX: I10 Essential (primary) hypertension (principal); E78.1 Pure hyperglyceridemia
CPT/HCPCS: 99214

== ENCOUNTER 2024-06-24 07:41 | Outpatient (REF) | payer OTHER, SELFPAY ==
[2024-06-24 08:20] LABS: Appearance Urine Clear; Color Urine Yellow; Glucose Urine UA Negative (Negative); Leukocyte Esterase Urine Negative (Negative); Nitrite Urine Negative (Negative); PH 5.5 (5.0-9.0); Urine Blood Negative (Negative); Urine Ketones Negative (Negative); Urine Protein Negative (Neg-Trace)
[2024-06-24 08:25] LABS: Hematocrit 43.1 % (42.0-52.0); Hemoglobin 14.9 g/dl (14.0-18.0); Mean Corpuscular HGB Conc 34.6 g/dl (31.0-36.0); Mean Corpuscular Hemoglobin 30.5 pg (27.0-33.0); Mean Corpuscular Volume 88.3 fL (80.0-98.0); Mean Platelet Volume 8.9 fL (9.4-12.4); Platelet Count 355 X10*3/uL (160-400); Red Blood Count 4.88 X10*6/uL (4.60-5.80); Red Cell Distribution Width 12.7 % (11.0-16.0); White Blood Count 9.1 X10*3/uL (4.8-10.8)
[2024-06-24 09:01] LABS: Alanine Aminotransferase 29 U/L (0-40); Albumin Level 4.5 g/dL (3.5-5.0); Alkaline Phosphatase 56 U/L (39-117); Anion Gap 14 (12-20); Aspartate Amino Transferase 19 U/L (5-37); Bilirubin Direct 0.2 mg/dL (0.0-0.5); Bilirubin Total 0.6 mg/dL (0.0-1.0); Blood Urea Nitrogen 12 mg/dL (9-16); Calcium 9.4 mg/dL (8.4-10.2); Carbon Dioxide 25 mmol/L (22-29); Chloride 104 mmol/L (96-108); Cholesterol 179 mg/dL (<200); Estimated Glomerular Filt Rate > 60; Glucose Random 108 mg/dL (60-115); HDL Cholesterol 34 mg/dL (>40); LDL Cholesterol Calculated 106 mg/dL (<100); Potassium 4.1 mmol/L (3.3-5.1); Sodium 139 mmol/L (135-145); Total Protein 7.8 g/dL (6.5-8.0); Triglycerides 197 mg/dL (<150)
[2024-06-24 09:16] LABS: Thyroid Stimulating Hormone 1.28 uIU/mL (0.32-4.0)
== END 2024-06-24 07:42 | disposition home or self-care (01) ==
LOC: HO.LAB 07:41
PROVIDERS: PCP Internal Medicine; Visit Provider Internal Medicine
DX: I10 Essential (primary) hypertension (principal); E78.1 Pure hyperglyceridemia
CPT/HCPCS: 36415; 80048; 80061; 80076; 81003; 84443; 85027

== ENCOUNTER 2024-11-03 10:25 | Outpatient (AMB) | payer OTHER, SELFPAY ==
[2024-11-03 11:10] VITALS: BP 152/98; PULSE 84; O2SAT 98; BMI 33.7
--- NOTE | 2024-11-03 11:10 | A.OFFPC_ITS ---
Vital Signs 11/03/24 11:10 Height 5 ft 10 in Weight 235 lb BMI 33.7 BP 152/98 H Blood Pressure Location Lt brachial Position Sitting Pulse 84 Pulse Source Pulse Oximeter Pulse Oximetry (%) 98 Oxygen Delivery Method Room Air Intake Visit Reasons: requesting referral/ 3 month f/u Allergies No Known Allergies Allergy (Verified 11/07/24 12:04) Medication List - Last Reconciled 11/07/24 by Jonnie Nunes MD metoprolol succinate ER 50 mg PO DAILY Tobacco use date assessed: 11/03/24 Dental Screening Dental Screen Date: 11/03/24 Did you have a dental visit in the last 12 months?: Yes Did you have a dental problem in the last 6 months where you did not have access to dental care?: No Was dental information given to patient?: Patient has dentist HPI requesting referral/ 3 month f/u HPI Details 44-year-old male presents to the office requesting a referral. Patient would like to get a sleep study done. He reports symptoms of snoring at night and an elevated blood pressure. 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 Symptoms of fatigue during the daytime. 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 1. Little interest or pleasure in doing things: not at all 2. Feeling down, depressed, or hopeless: not at all 3. Trouble falling or staying asleep, or sleeping too much: not at all 4. Feeling tired or having little energy: not at all 5. Poor appetite or overeating: not at all 6. Feeling bad about yourself - or that you are a failure or have let yourself or your family down: not at all 7. Trouble concentrating on things, such as reading the newspaper or watching television: not at all 8. Moving or speaking so slowly that other people could have noticed. Or the opposite - being so fidgety or restless that you have been moving around a lot more than usual: not at all 9. Thoughts that you would be better off or of hurting yourself in some way: not at all Total score: 0 Depression Screening Interpretation: Negative Depression Screening Done: Yes 38178 - PHQ-9 Billing: Yes Source: Developed by Drs. Juan Mott, Tea Altman, Liu Gonzalez and colleagues, with an educational lito from [employer]. Thrive Questionnaire Date Thrive assessed: 11/03/24 I am a: Patient What is your living situation today?: I have a steady place to live Within the past 12 months, did the food you bought not last and you didn't have the money to get more?: Never true Within the past 12 months, did you worry whether your food would run out before you got money to buy more?: Never true Do you have trouble paying for medicines?: No Do you have trouble getting transportation to medical appointments?: No Do you have trouble paying your heating and electricity bill?: No Do you have trouble taking care of your child, family member or friend?: No Do you have trouble with day-to-day activities such as bathing, preparing meals, shopping, managing finances, etc.?: No Are you currently unemployed and looking for a job?: No Are you interested in more education?: No Please select the resources that you would like help with: None Currently or been in a relationship where the following occur: No concerns reported THRIVE Score: 0 AUDIT C Alcohol Use Questionnaire (AUDIT-C) 1. How often do you have a drink containing alcohol?: Never 3. How often do you have six or more drinks on one occasion?: Never Total Score: 0 ANAYA-7 AMB Questionnaire ANAYA-7 Date ANAYA - 7 assessed: 11/03/24 Feeling nervous, anxious, or on edge: 0 = Not at all Not being able to stop or control worryin = Not at all Worrying too much about different things: 0 = Not at all Trouble relaxin = Not at all Being so restless that it is hard to sit still: 0 = Not at all Becoming easily annoyed or irritable: 0 = Not at all Feeling afraid as if something awful might happen: 0 = Not at all Total ANAYA-7 score (0-4 normal; 5-9 mild; 10-14 moderate; 15-21 severe): 0 Source: Developed by Drs. Juan Mott, Tea Altman, Liu Gonzalez and colleagues, with an educational lito from [employer]. ANAYA-7 Assessment Billing ANAYA-7 Assessment Tool: ANAYA-7 Assessment 25118 Physical exam (Primary Care) Vital Signs: Last Vital Signs Pulse 84 11/03/24 11:10 BP 152/98 H 11/03/24 11:10 Pulse Ox 98 11/03/24 11:10 Oxygen Delivery Method Room Air 11/03/24 11:10 BMI result Body Mass Index 33.7 Tobacco/Smoking Status: Tobacco use Status Tobacco use date assessed 11/03/24 11/03/24 11:14 Patient Tobacco Use Status Never used Tobacco 11/03/24 11:14 Tobacco use type Cigarette 11/03/24 11:14 e-Cigarette/Vaping Use Never Used 11/03/24 11:14 PHQ-9: PHQ-9 Score PHQ-9: Total score 0 11/03/24 11:14 Depression Screening Interpretation: Negative Thrive Assessment: Date of Thrive Assessment Date Thrive assessed 11/03/24 11/03/24 11:14 Currently or been in a relationship where the following occur: No concerns reported Const General: cooperative and healthy appearing Nutritional Appearance: well nourished Orientation/consciousness: patient oriented x3 Limitations: no limitations HENMT Head: Yes normal to inspection Eyes General: appearance normal, both eyes and all related structures Neck Neck: Yes normal visual inspection Chest Chest palpation & inspection: normal palpation of entire chest wall Resp Effort & Inspection: normal respiratory effort Neuro General: patient oriented x3 Coding Level of Care Code Est Pt Level 3 (72335) Diagnoses Obstructive sleep apnea G47.33 Additional Codes ANAYA-7 Assessment Billing - ANAYA-7 Assessment Tool: ANAYA-7 Assessment 38247 ([id number]) PHQ-9 - 17358 - PHQ-9 Billing: Yes ([id number]) Assessment & Plan Assessment & Plan (1) Obstructive sleep apnea: Code(s): G47.33 - Obstructive sleep apnea (adult) (pediatric) Plan: Sleep study has been ordered. Patient was encouraged to get it done. Orders: Orders RT home sleep study Today G47.33 - Obstructive sleep apnea (adult) (pediatric)
== END 2024-11-03 12:43 | disposition home or self-care (01) ==
PROVIDERS: PCP Internal Medicine; Visit Provider Internal Medicine
DX: G47.33 Obstructive sleep apnea (adult) (pediatric) (principal)

== ENCOUNTER → 2024-11-03 10:25 | Outpatient (BNVA) | payer OTHER, SELFPAY | PROVIDERS: PCP Internal Medicine; Visit Provider Internal Medicine | DX: G47.33 Obstructive sleep apnea (adult) (pediatric) (principal) | CPT/HCPCS: 96127 ==

== ENCOUNTER → 2024-12-23 14:45 | Outpatient (REF) | payer OTHER, SELFPAY | LOC: HO.SL 14:45 | PROVIDERS: PCP Internal Medicine; Visit Provider Internal Medicine | DX: G47.33 Obstructive sleep apnea (adult) (pediatric) (principal) | CPT/HCPCS: 95806 ==

== ENCOUNTER → 2024-12-23 15:00 | Outpatient (BNV) | payer OTHER, SELFPAY | PROVIDERS: PCP Internal Medicine; Visit Provider Internal Medicine | DX: G47.33 Obstructive sleep apnea (adult) (pediatric) (principal) | CPT/HCPCS: 95806 ==

== ENCOUNTER 2025-03-07 14:33 | Outpatient (AMB) | payer OTHER, SELFPAY ==
--- NOTE | 2025-03-07 14:36 | MHC.OFFVIS ---
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 The patient is a 44-year-old gentleman with abnormal sleep study. The patient has been having significant daytime drowsiness. His Kirby score is elevated 09/19. The patient has also been dealing with significant snoring and apneic episodes where he has woken up with significant shortness of breath from apnea. He has gotten started significantly. Therefore he went to his primary care doctor and decided to have a sleep study. He did have a home sleep study which demonstrated an AHI of 43 and he desaturated significantly. 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 Therefore he needs to start APAP as soon as possible to improve his cardiovascular risk and cerebrovascular risk and improve his daytime drowsiness as he needs to be fully awake while working his profession. We are going to work with a local [employer] company to provide him an APAP as soon as possible. He will bringing into the next visit. He has any issues getting the equipment or with the machine tolerating it he will call the office so we can help him. 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 Cognitive needs: No Hearing needs: No Vision needs: No Review of Systems Const Denies chills, Reports daytime sleepiness, Reports difficulty sleeping, Denies fatigue, Denies fever(s), Reports snoring, Reports stops breathing during sleep, Denies weight gain and Denies weight loss Eyes Denies loss of vision ENT Denies dizziness Card Denies chest pain, Denies leg edema, Denies lightheadedness, Denies palpitations, Denies dyspnea on exertion, Denies orthopnea and Denies other Resp Reports as per HPI, Denies cough, Denies dyspnea on exertion, Reports snoring and Denies wheezing GI Denies hematochezia and Denies change in stool character Denies dysuria and Denies urinary frequency Musc Denies abnormal gait, Denies muscle weakness, Denies numbness, Denies radiating pain into limb and Denies tingling Skin/Breast Denies nail changes and Denies rash Neuro Denies Abnormal speech present, Denies abnormal gait, Denies dizziness, Denies loss of vision, Denies memory loss, Denies numbness and Denies tingling Psych Denies depression and Denies memory loss Endo Denies fatigue and Denies palpitations Marvin/Lymph Denies easy bruising Aller/Immun Denies wheezing Physical Exam Vital Signs: Last Vital Signs Pulse 100 03/07/25 14:38 BP 130/92 H 03/07/25 14:38 Pulse Ox 98 03/07/25 14:38 Oxygen Delivery Method Room Air 03/07/25 14:38 BMI result Body Mass Index 32.6 Const General: comfortable HEENT Head: Yes normocephalic Neck Neck: Yes no lymphadenopathy Chest Chest palpation & inspection: normal inspection of the chest Resp Effort & Inspection: normal respiratory effort Auscultation: clear to auscultation bilaterally Cardio Heart sounds: S1 normal heart sound present and S2 normal heart sound present GI Palpation (GI): Soft to palpation Skin General skin exam: no rashes or lesions noted Neuro Speech: No Abnormal speech present Extrem General: Yes no clubbing, cyanosis or edema Assessment & Plan Assessment & Plan (1) JANICE (obstructive sleep apnea): Code(s): G47.33 - Obstructive sleep apnea (adult) (pediatric) Category: Medical Plan start APAP ATUL F/U 3-4 monthswith PAP Coding Level of Care Code New Pt Level 3 (58295) Diagnoses JANICE (obstructive sleep apnea) G47.33 Time Spent (min) 30
[2025-03-07 14:38] VITALS: BP 130/92; PULSE 100; O2SAT 98; BMI 32.6
== END 2025-03-07 16:30 | disposition home or self-care (01) ==
LOC: HO.HPS 14:33
PROVIDERS: PCP Internal Medicine; Referring Provider Internal Medicine; Visit Provider Hospitalist
DX: G47.33 Obstructive sleep apnea (adult) (pediatric) (principal)
CPT/HCPCS: 99203

== ENCOUNTER → 2025-03-07 14:33 | Outpatient (BNVA) | payer OTHER, SELFPAY | PROVIDERS: PCP Internal Medicine; Referring Provider Internal Medicine; Visit Provider Hospitalist ==

== ENCOUNTER 2025-06-15 13:19 | Outpatient (AMB) | payer OTHER, SELFPAY ==
--- NOTE | 2025-06-15 13:20 | A.OFFPC_ITS ---
Vital Signs 06/15/25 13:22 06/15/25 13:24 Height 5 ft 10 in Weight 103.873 kg BP 130/70 Blood Pressure Location Rt brachial Position Sitting Respiration 17 Pulse 93 Pulse Source Pulse Oximeter Temp 98 F Temp Source Temporal Artery Scan Pulse Oximetry (%) 99 Oxygen Delivery Method Room Air Intake Visit Reasons: Annual Medical Support Assistant Required: No Accompanied by: Self / Same As Patient Allergies No Known Allergies Allergy (Verified 06/15/25 13:20) Tobacco use date assessed: 11/03/24 Dental Screening Dental Screen Date: 11/03/24 HPI HPI Comments History of Present Illness Details 45-year-old male with history of hyperte nsion, hypertriglyceridemia, elevated fasting glucose, obstructive sleep apnea presents to the office today to establish care, management of chronic conditions, and for annual physical exam. Lives with girlfriend and 2 children and feels safe there. 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 He does not drink alcohol, no cigarette smoking, no drug use including marijuana Obstructive sleep apnea-diagnosed 12/2024 with very severe sleep apnea. Recommended for APAP myla per pulmonology Hypertriglyceridemia-taking garlic supplement Obesity- going to the gym 4 days per week. Improving diet. Sits a lot with work, but has increased movement HTN- bp controlled. On metoprolol Concerns: None Health maintenance: Colonoscopy started H 47 Family history prostate cancer-due for PSA Due for eye exam Reviewed past medical, surgical, family, social history ROS: General: No fevers, malaise, unintentional weight loss HEENT: No blurred vision, diplopia. No sore throat, nasal congestion, rhinorrhea, sinus pain, ear pain. No hearing loss Neck - no adenopathy Cardiovascular: No chest pain, palpitations, or leg edema Respiratory: No shortness of breath, wheezing, cough GI: No dysphagia, odynophagia, globus sensation. No abdominal pain, nausea, vomiting, diarrhea, constipation, melena, hematochezia : No dysuria, hematuria, increased urinary frequency, decreased urinary output. No testicular swelling or pain. No penile discharge MSK: No myalgia, back pain, arthralgias Neuro: No headaches, weakness, paresthesias Psych: no depression/anxiery. No AH/VH. No SI/HI Skin: No rashes or lesions EXAM: Constitutional - Awake and Alert, No apparent distress Eyes - PERRLA, EOMI. Anicteric Ears - external ears normal, canals clear, TMs intact and pearly lockett with good cone of light Nose- septum midline, nares clear, no sinus tenderness Mouth/throat- mucosa moist, tongue and uvula midline, no erythema/edema or tonsillar adenopathy. Neck-trachea midline, thyroid symmetric without palpable nodules, no adenopathy Cardiovascular - S1S2, RRR, No edema Respiratory - Normal lung expansion, Normal respiratory effort, No respiratory distress, CTA bilaterally Gastrointestinal - NT / ND; +BS; No rebound or guarding - No CVA tenderness Extremities - no calf tenderness bilaterally, no swelling Musculoskeletal - Normal inspection, normal ROM Skin - Warm/Dry, no concerning lesions Neurological - Alert & oriented x3, CN II-XII in tact, 5/5 strength BUE and BLE, 2+ patellar reflexes, sensation intact Psychological - Appropriate affect [facility] Medical History (Updated 03/07/25 @ 23:48 by Brandon Han MD) JANICE (obstructive sleep apnea) Hypertension Lumbar back pain Surgical History (Updated 06/15/25 @ 13:40 by JANNIE Arriaga) No pertinent past surgical history Family History (Updated 06/15/25 @ 13:39 by JANNIE Arriaga) Mother Hypertension Father Prostate cancer Social History Housing: House Alcohol intake: never Patient Tobacco Use Status: Never used Tobacco Tobacco use type: Cigarette e-Cigarette/Vaping Use: Never Used service: No Current occupational status: employed 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 1. Little interest or pleasure in doing things: not at all 2. Feeling down, depressed, or hopeless: not at all 3. Trouble falling or staying asleep, or sleeping too much: not at all 4. Feeling tired or having little energy: not at all 5. Poor appetite or overeating: not at all 6. Feeling bad about yourself - or that you are a failure or have let yourself or your family down: not at all 7. Trouble concentrating on things, such as reading the newspaper or watching television: not at all 8. Moving or speaking so slowly that other people could have noticed. Or the opposite - being so fidgety or restless that you have been moving around a lot more than usual: not at all 9. Thoughts that you would be better off or of hurting yourself in some way: not at all Total score: 0 Depression Screening Interpretation: Negative Depression Screening Done: Yes 41599 - PHQ-9 Billing: Yes Source: Developed by Drs. Juan Mott, Tea Altman, Liu Gonzalez and colleagues, with an educational lito from [employer]. Thrive Questionnaire Date Thrive assessed: 11/03/24 AUDIT C Alcohol Use Questionnaire (AUDIT-C) 1. How often do you have a drink containing alcohol?: Never Total Score: 0 ANAYA-7 AMB Questionnaire ANAYA-7 Date ANAYA - 7 assessed: 11/03/24 Feeling nervous, anxious, or on edge: 0 = Not at all Not being able to stop or control worryin = Not at all Worrying too much about different things: 0 = Not at all Trouble relaxin = Not at all Being so restless that it is hard to sit still: 0 = Not at all Becoming easily annoyed or irritable: 0 = Not at all Feeling afraid as if something awful might happen: 0 = Not at all Total ANAYA-7 score (0-4 normal; 5-9 mild; 10-14 moderate; 15-21 severe): 0 Source: Developed by Drs. Juan Mott, Tea Altman, Liu Gonzalez and colleagues, with an educational lito from [employer]. ANAYA-7 Assessment Billing ANAYA-7 Assessment Tool: ANAYA-7 Assessment 05552 Physical exam (Primary Care) Vital Signs: Last Vital Signs Temp 98 F 06/15/25 13:24 Pulse 93 06/15/25 13:24 Resp 17 06/15/25 13:24 BP 130/70 06/15/25 13:24 Pulse Ox 99 06/15/25 13:24 Oxygen Delivery Method Room Air 06/15/25 13:24 Tobacco/Smoking Status: Tobacco use Status Tobacco use date assessed 11/03/24 06/15/25 13:26 Patient Tobacco Use Status Never used Tobacco 06/15/25 13:26 Tobacco use type Cigarette 06/15/25 13:26 e-Cigarette/Vaping Use Never Used 06/15/25 13:26 Depression Screening Interpretation: Negative Thrive Assessment: Date of Thrive Assessment Date Thrive assessed 11/03/24 06/15/25 13:26 Coding Level of Care Code Est Pt Level 3 (61052) New Pt Prev Care 40-64y(34066) Diagnoses Routine medical exam Z00.00 Hypertension I10 Hypertriglyceridemia E78.1 JANICE (obstructive sleep apnea) G47.33 Additional Codes ANAYA-7 Assessment Billing - ANAYA-7 Assessment Tool: ANAYA-7 Assessment 55257 ([id number]) PHQ-9 - 87342 - PHQ-9 Billing: Yes ([id number]) Assessment & Plan Assessment & Plan (1) Routine medical exam: Code(s): Z00.00 - Encounter for general adult medical examination without abnormal findings Plan: Labs ordered, plan as below (2) Hypertension: Code(s): I10 - Essential (primary) hypertension Category: Medical Plan: Coontrolled. Continue toprol (3) Hypertriglyceridemia: Code(s): E78.1 - Pure hyperglyceridemia Category: Medical Plan: Recheck lipid panel (4) JANICE (obstructive sleep apnea): Code(s): G47.33 - Obstructive sleep apnea (adult) (pediatric) Category: Medical Plan: Improving. Continue APAP, follow with pulm as scheduled. Plan Routine screening labs as ordered below Screening colonoscopies to start at age 45, PSA ordered Continue following for annual skin exams and use sun protection Annual eye exams Wear seat belt in car Recommend regular exercise and healthy diet Follow up in 1 year for annual physical Orders: Orders Complete Blood Count Auto Diff Today E78.1 - Pure hyperglyceridemia, G47.33 - Obstructive sleep apnea (adult) (pediatric), I10 - Essential (primary) hypertension, Z00.00 - Encounter for general adult medical examination without abnormal findings Hemoglobin A1c Today E78.1 - Pure hyperglyceridemia, G47.33 - Obstructive sleep apnea (adult) (pediatric), I10 - Essential (primary) hypertension, Z00.00 - Encounter for general adult medical examination without abnormal findings Lipid Panel Today E78.1 - Pure hyperglyceridemia, G47.33 - Obstructive sleep apnea (adult) (pediatric), I10 - Essential (primary) hypertension, Z00.00 - Encounter for general adult medical examination without abnormal findings Liver Panel Today E78.1 - Pure hyperglyceridemia, G47.33 - Obstructive sleep apnea (adult) (pediatric), I10 - Essential (primary) hypertension, Z00.00 - Encounter for general adult medical examination without abnormal findings Prostate Specific Antigen Today Z00.00 - Encounter for general adult medical examination without abnormal findings, Z80.42 - Family history of malignant neoplasm of prostate Basic Metabolic Panel Today E78.1 - Pure hyperglyceridemia, G47.33 - Obstru ctive sleep apnea (adult) (pediatric), I10 - Essential (primary) hypertension, Z00.00 - Encounter for general adult medical examination without abnormal findings
[2025-06-15 13:24] VITALS: BP 130/70; PULSE 93; RESP 17; TEMP 36.6; O2SAT 99
== END 2025-06-15 14:31 | disposition home or self-care (01) ==
LOC: HO.HMCHD 13:20
PROVIDERS: PCP Internal Medicine; Visit Provider Physician Assistant
DX: Z00.00 Encounter for general adult medical examination without abnormal findings (principal); I10 Essential (primary) hypertension; E78.1 Pure hyperglyceridemia; G47.33 Obstructive sleep apnea (adult) (pediatric)

== ENCOUNTER → 2025-06-15 13:19 | Outpatient (BNVA) | payer OTHER, SELFPAY | PROVIDERS: PCP Internal Medicine; Visit Provider Physician Assistant | DX: Z00.00 Encounter for general adult medical examination without abnormal findings (principal); Z76.89 Persons encountering health services in other specified circumstances; I10 Essential (primary) hypertension; E78.1 Pure hyperglyceridemia; G47.33 Obstructive sleep apnea (adult) (pediatric); E66.9 Obesity, unspecified; Z79.899 Other long term (current) drug therapy; Z13.31 Encounter for screening for depression | CPT/HCPCS: 96127 ==